=== PATIENT | male | born 1940 | race Caucasian/White ===

== ENCOUNTER 2017-01-25 17:51 | Inpatient (IN) ==
[2017-01-25] MEDS ORDERED: NS 1,000 ML IV ONE (18:46)
[2017-01-25] MEDS ORDERED: ZOFRAN IV ONE (18:46)
--- NOTE | 2017-01-25 18:51 | PROVIDER DOCUMENTATION ---
HPI-Abdominal Pain/GI Problem - General Chief Complaint: Nausea/Vomiting Stated Complaint: N/V/D Time Seen by Provider: 01/25/17 18:46 Source: patient, family Allergies/Adverse Reactions: Patient Allergies Allergy/AdvReac Type Severity Reaction Status Date / Time No Known Allergies Allergy Verified 01/25/17 18:09 Home Medications: Home Medication List Medication Instructions Recorded Confirmed Last Taken Type ATORVAstatin [Lipitor] 20 mg PO QHS 03/07/13 01/25/17 01/25/17 08:00 History Colesevelam [Welchol] 625 mg PO BID 03/07/13 01/25/17 01/25/17 08:00 History Escitalopram [Lexapro] 10 mg PO DAILY 03/07/13 01/25/17 01/25/17 08:00 History Finasteride 5 mg PO DAILY 03/07/13 01/25/17 01/25/17 08:00 History Metformin HCl [Metformin HCl ER] 500 mg PO BID 03/07/13 01/25/17 01/25/17 08:00 History Tamsulosin [Flomax] 0.4 mg PO QHS 03/07/13 01/25/17 01/25/17 08:00 History Glimepiride 2 mg PO BID 04/10/14 01/25/17 01/25/17 08:00 History Aspirin [Aspirin EC] 81 mg PO DAILY 08/14/15 01/25/17 01/25/17 08:00 History Cetirizine HCl [Zyrtec] 1 cap PO DAILY 08/14/15 01/25/17 01/25/17 08:00 History Methocarbamol [Robaxin] 500 mg PO 4XDAY PRN PRN 08/14/15 01/25/17 01/25/17 08: 00 History Oxycodone HCl/Acetaminophen 1 tab PO Q6H PRN PRN 08/14/15 01/25/17 Unknown History [Percocet 10-325 mg Tablet] Duloxetine [Cymbalta] 30 mg PO DAILY 01/25/17 01/25/17 01/25/17 08:00 History Esomeprazole [Nexium] 40 mg PO DAILY 01/25/17 01/25/17 01/25/17 08:00 History LISINOpril [Prinivil] 10 mg PO DAILY 01/25/17 01/25/17 01/25/17 08:00 History Metoclopramide [Reglan] 10 mg PO DAILY 01/25/17 01/25/17 01/25/17 08:00 History - History of Present Illness-ABD Nature of Presenting Problems: 76 yom c/o generalized Abdominal pain that has continued to get worse over the past month. Pt recently had a test and diagnosed with delayed gastric emptying and put on reglan and increased dose of reglan when that did not improve and today pain has continued to get worse and now unable to keep any PO fluids or food down. Abdominal Pain Onset Location: reports: epigastric, generalized abdomen Pain Radiation: reports: no radiation Quality of Pain: reports: aching, fullness, pressure Severity in ED: reports: moderate Onset/Duration: reports: other (weeks) Timing: reports: still present, getting worse Activities at Onset: reports: none Exposure to sick contacts?: No Modifying Factors: improves with: nothing Associated Symptoms: reports: nausea, vomiting Last BM: 24 hours ago Dark Stools Present?: reports: none noticed Rectal Bleeding: reports: none # of Diarrhea Episodes: 0 Rectal Pain: reports: none # of Vomiting Episodes: 5 Bruising or Bleeding Gums?: No Similar Symptoms Previously?: No Review of Systems - Adult - REVIEW OF SYSTEMS - ADULT Constitutional: reports: see HPI Eyes: reports: no symptoms reported Ears, Nose, Mouth & Throat: reports: no symptoms reported Cardiovascular: reports: no symptoms reported Respiratory: reports: no symptoms reported Gastrointestinal: reports: see HPI, abdominal pain, nausea, vomiting Genitourinary: reports: no symptoms reported Musculoskeletal: reports: no symptoms reported Integumentary: reports: no symptoms reported Neurological: reports: no symptoms reported Psychiatric: reports: no symptoms reported Endocrine: reports: no symptoms reported Hematologic/Lymphatic: reports: no symptoms reported Allergic/Immunologic: reports: no symptoms reported All Other Systems: Reviewed and Negative Past History - Adult - PAST MEDICAL HISTORY-ADULT Review of Records: reports: Old Records Reviewed, Nursing Assessment Review, Medications Reviewed, Social history reviewed & non-contributory. Major Childhood Illnesses: reports: denies history Cardiovascular: reports: HTN, hyperlipidemia, murmur, other (tachycardia) Gastrointestinal: reports: GERD, IBS, ulcer (Bleeding) Endocrine/Immune: reports: Diabetes Other Conditions: reports: other (diverticulitis) - PRIOR SURGERIES/PROCEDURES Surgical/Procedure History: reports: cholecystectomy, orthopedic (extremity), back/neck (low back), other (rudolph carpal tunnel) - PRIOR HOSPITALIZATIONS Prior Hospitalizations: reports: for other non-related - IMMUNIZATION STATUS Childhood Immunizations: UTD Flu Vaccine: UTD - FAMILY HISTORY Family History: reviewed, not pertinent Physical Exam-General - PHYSICAL EXAM-ADULT Initial Vital Signs Reviewed: Yes - CONSTITUTIONAL General Appearance: alert, mild distress - EYES Eyes: PERRL/EOMI, pink conjunctivae - HEAD, EARS, NOSE, MOUTH & THROAT HENMT: normocephalic/atraumatic, moist mucous membranes, normal ENT inspection - NECK Neck: non-tender, full range of motion, supple, normal inspection - RESPIRATORY Respiratory: chest non-tender, lungs clear, normal breath sounds, no pleuratic chest pain, no respiratory distress, no accessory muscle use - CARDIOVASCULAR Cardiovascular: normal peripheral pulses, regular rate, rhythm, no edema, no gallop, no JVD, no murmur - GASTROINTESTINAL (ABDOMEN) Abdominal Exam: no organomegaly, no pulsatile mass, abnormal bowel sounds ( hyperactive), distended (very mild distention), tenderness (generalized). negative: hernia, mass, hepatomegaly, spleenomegaly, McBurney's point tenderness , Smith's sign, obturator sign, prominent aortic pulsations, psoas, Rovsing's sign - LYMPHATIC Lymphatic: no adenopathy - MUSCULOSKELETAL Back Exam: normal inspection, no CVA tenderness, no vertebral tenderness Extremity: normal range of motion, non-tender, normal gait, normal inspection, no pedal edema, no calf tenderness, normal capillary refill, pelvis stable Peripheral Pulses: radial (R): 2+, radial (L): 2+, dorsalis-pedis (R): 2+, dorsalis-pedis (L): 2+ - SKIN Integumentary: normal color, normal turgor, warm/dry - NEUROLOGIC Neurologic: grossly normal, no motor/sensory deficits - PSYCHIATRIC Psych/Mental Status: normal mood/affect, normal thought content, normal thought process, oriented x 3 Progress - PLAN OF CARE/RESULTS Progress/Plan/Lab Results: Vital Signs - 8 hr 01/25/17 17:56 Temperature 98.0 F Pulse Rate 106 H Respiratory Rate 18 Blood Pressure 117/67 O2 Sat by Pulse Oximetry 100 Orders Category Date Time Status Saline Loc DIRECTED Care 01/25/17 18:44 Active NPO Diet 01/25/17 18:[address] ABD/PELVIS W/ IV CONT ONLY [CT] Stat Exams 01/25/17 18:44 Ordered AMYLASE [CHEM] Stat Lab 01/25/17 18:44 Uncollected CBC WITH ELECTRONIC DIFF [HEME] Stat Lab 01/25/17 18:44 Uncollected COMPREHENSIVE METABOLIC PANEL [CHEM] Stat Lab 01/25/17 18:44 Uncollected LIPASE [CHEM] Stat Lab 01/25/17 18:44 Uncollected URINALYSIS W/POSS RFLX CULT-1 [URINALYSIS] Stat Lab 01/25/17 18:44 Uncollected Ns 1000 ml IV Bolus X1 Med 01/25/17 18:46 Ordered 0.9% Sodium Chloride Inj [Ns] 1,000 ml IV 999 mls/hr Ondansetron [Zofran] Med 01/25/17 18:46 Once 4 mg IV NOW ONE Result Diagrams: 01/25/17 18:35 01/25/17 18:35 - CT/MRI 1 CT Study: Abdomen Impression: See EMR Report (Pnemonia otherwise normal.) - CONSULTS/PCP/HOSPITALIST Notification #1 *Consult/PCP/Hospitalist*: Dr. Aguilar Time Discussed: 20:45 Consult Disposition: Will see in ED, Admit Departure - Departure Date of Disposition Decision: 01/25/17 Time of Disposition Decision: 20:56 DIAGNOSIS: Pneumonia Qualifiers: Pneumonia type: due to unspecified organism Laterality: unspecified laterality Lung location: unspecified part of lung Qualified Code(s): J18.9 - Pneumonia, unspecified organism Intractable nausea and vomiting Qualifiers: Vomiting type: unspecified Qualified Code(s): R11.2 - Nausea with vomiting, unspecified Disposition: ADMITTED INPATIENT 09 Certified Medical Emergency: Emergent Condition: Stable Referrals and Follow-Ups: Dalton Friedman MD [Primary Care Provider] - - Critical Care Note This patient required my direct & personal management of CC.: No Attestation - Physician/ SAMEER Attestation Patient care was provided by Advanced Practice Provider:: Yes Advanced Practice Provider:: Jose Antonio Toscano Advanced Practice Provider documentation review:: The Mid-level provider documentation, treatment plan and medical decision making was reviewed by the physician who agrees with all treatment and medical decision making by the MLP. The physician spent face to face time with patient:: Yes Advanced Practice Provider documentation review:: Supervising physician onsite and consulted in the evaluation and care of this patient. The physician did have a face to face encounter with the patient.
[2017-01-25 18:56] LABS: MANUAL DIFF NEEDED? NO
[2017-01-25 18:58] LABS: BASO% 0.2 % (0.0-0.8); EOS% 2.1 % (0.0-10.0); HEMATOCRIT 39.6 % (42.0-52.0); HEMOGLOBIN 13.4 g/dL (14.0-18.0); LYMPH# 0.87 X1000 (1.2-3.4); LYMPH% 17.9 % (20.5-51.1); MCH 27.3 PG (27-31); MCHC 33.8 g/dL (33-37); MCV 80.8 FL (81-99); MONO# 0.31 X1000 (0.11-0.59); MONO% 6.4 % (1.7-9.3); MPV 10.2 FL (7.4-10.4); NEUT% 73.4 % (42.2-75.2); PLT 239 X1000 (130-400)
--- NOTE | 2017-01-25 19:20 | ED EKG INTERP ---
This chart was entered by Santi Kim Scribe, acting as scribe for Jose Antonio Mccracken MD. EKG Interpretation - EKG Time of EKG reading by physician:: 18:47 EKG Read and Signed by:: Jose Antonio Mccracken EKG Interpretation (*Must complete 3 of following elements*): Abnormal (RBBB) Rate: 87 Rhythm: NSR Attestation - Physician/ SAMEER Attestation Patient care was provided by Advanced Practice Provider:: Yes Advanced Practice Provider documentation review:: The Mid-level provider documentation, treatment plan and medical decision making was reviewed by the physician who agrees with all treatment and medical decision making by the MLP. The physician spent face to face time with patient:: No Advanced Practice Provider documentation review:: Supervising physician onsite and consulted in the evaluation and care of this patient. The physician did not have a face to face encounter with the patient. This chart was documented by the indicated scribe, (Santi Kim Scribe) and accurately reflects the services I performed and decisions made by me, Jose Antonio Mccracken MD, as attested by the provider's signature.
[2017-01-25 19:21] LABS: AGAP 14; ALBUMIN 4.3 g/dL (3.5-5.0); ALKALINE PHOSPHATASE 56 U/L (32-122); AMYLASE 34 U/L (20-200); BUN 16 mg/dL (8-22); CALCIUM 8.9 mg/dL (8.8-10.2); CHLORIDE 103 mmol/L (98-107); COSMO 284; GOT 13 U/L (10-34); GPT 16 U/L (10-44); LIPASE 42 U/L (13-60); POTASSIUM 3.9 mmol/L (3.5-5.1); SODIUM 141 mmol/L (136-145); TCO2 24 mmol/L (25-35); TOTAL BILIRUBIN 0.26 mg/dL (0.20-1.00); TOTAL PROTEIN 6.8 g/dL (6.3-8.3)
[2017-01-25 19:55] LABS: URINE CULTURE NEEDED? NO; URINE MICRO REVIEW NEEDED? NO; URINE SOURCE CLEAN CATCH
[2017-01-25 20:01] LABS: BILIRUBIN URINE NEGATIVE (NEGATIVE); BLOOD URINE NEGATIVE (NEGATIVE); COLOR YELLOW; GLUCOSE URINE NEGATIVE (NEGATIVE); LEUKOCYTES URINE NEGATIVE (NEGATIVE); NITRITE URINE NEGATIVE (NEGATIVE); PH URINE 5.5; PROTEIN URINE 30 mg/dL (NEGATIVE); SP GRAVITY URINE 1.024; TURBIDITY URINE CLEAR (CLEAR); UROBILINOGEN URINE NORMAL (NORMAL)
[2017-01-25 20:02] LABS: UR EPITHELIAL CELLS <10 /HPF (<10); URINE BACTERIA NEGATIVE /HPF; URINE RBC <10 /HPF (<10); URINE WBC <10 /HPF (<10)
--- NOTE | 2017-01-25 20:10 | Diag Imaging Result Doc PS360 ---
EXAM: CT ABD/PELVIS W/ IV CONT ONLY HISTORY: abd pain TECHNIQUE: CT of the abdomen and pelvis with intravenous contrast and dose reduction (clarity.) COMMENT: There are minimal fibrotic changes present in the lung bases which have apparently been present since at least 06/28/2013. There is groundglass opacity in the posterior costophrenic sulcus of the right lower lobe which was not present at the time the previous study. There are multiple pulmonary nodules which appear to have been present previously most notably in the right lower lobe on image 31 near the diaphragm. The abdominal aorta is slightly distended inferiorly measuring a maximum of 2.8 cm in AP dimension. There are multiple cysts in the right kidney. There has been cholecystectomy. The mesenteric and renal arteries are patent. There is an accessory right renal artery. The appendix is normal in appearance. The liver, spleen, adrenal glands, and pancreas are unremarkable in appearance. There is no evidence of significant adenopathy or bowel obstruction. Pelvis: There is diverticulosis in the sigmoid colon. No abnormal fluid collections are present. The regional skeleton is stable in appearance. IMPRESSION: Minimal right lower lobe pneumonia. No evidence of acute disease in the abdomen or pelvis. Electronically signed by Mani Thomson 01/25/2017 8:07 PM
[2017-01-25] MEDS ORDERED: ROCEPHIN 1 GM/NS 1 GM/50 ML IVPB IV ONE (20:35)
[2017-01-25] MEDS ORDERED: ROBAXIN PO PRN (23:56)
[2017-01-26] MEDS ORDERED: TYLENOL PO PRN
[2017-01-26] MEDS ORDERED: NS 1,000 ML ONE (00:29)
[2017-01-26] MEDS: ZOSYN 3.375 GM/NS 3.375 GM/50 ML IVPB IV SCH ×4 (01:30→21:18)
[2017-01-26] MEDS: NS 1,000 ML IV SCH ×2 (01:30→11:07)
[2017-01-26] MEDS ORDERED: MELATONIN PO ONE (03:06)
--- NOTE | 2017-01-26 04:14 | HISTORY AND PHYSICAL ---
PRIMARY CARE PROVIDER: Dr. Kerry Friedman. DATE AND TIME: 01/25/2017 at 2230. CHIEF COMPLAINT: Nausea and vomiting. HISTORY OF PRESENT ILLNESS: Mr. Corea is a 76-year-old, male [facility] of nausea and vomiting as well as early satiety. He states that for approximately the past 3-4 weeks that he has had a feeling of feeling full all the time. He states that when he does eat, he maybe eats 1 or 2 bites and feels very full. He did have a gastric emptying study done on 01/05/2017 which did show delayed gastric emptying. He states that since this time, for the past 3 or 4 days, his symptoms have been worse. He states this time that he is having a hard time holding meals down. He states that he can hold fluids down easier than than food. He has been vomiting. He denies any abdominal pain, though upon examination did have some generalized tenderness across his entire abdomen as well as epigastric area. Given his reported symptoms, they did perform a CT of the abdomen and pelvis with IV contrast in the ER which did show some diverticulosis in the sigmoid colon, though there was no evidence of acute disease in the abdomen or pelvis. Also noted on the CT was a minimal right lower lobe pneumonia. Upon examination, the patient does have crackles in the right lower lobe, though he denies any cough, shortness of breath, fever, body aches, or chills. He has had recent frequent episodes of nausea and vomiting, though he denies becoming choked during any of this episodes. He also reports a few episodes of some dizziness upon standing, though he states this only happens when he goes from a sitting to a standing position and is very brief. He denies any headache, chest pain, diarrhea, or constipation. He reports that his last bowel movement was yesterday. He denies any hematochezia or melena. He denies any urinary symptoms or pain, numbness, tingling, or swelling in the extremities. At this time, he will be admitted for further treatment and evaluation of his right lower lobe pneumonia as well as intractable nausea and vomiting. REVIEW OF SYSTEMS: A 12 point review of systems was conducted with the patient. All were negative except for pertinent positives mentioned above in the HPI. PAST MEDICAL HISTORY: 1. Cervical spinal stenosis. 2. Diabetes mellitus type 2. 3. Gastroesophageal reflux disease. 4. Hypertension. 5. Hyperlipidemia. 6. Previous history of gastrointestinal bleeding. 7. Bursitis. 8. Irritable bowel syndrome. 9. History of mitral valve repair. PAST SURGICAL HISTORY: 1. Cholecystectomy. 2. ORIF of the left knee. 3. Right and left carpal tunnel release. 4. C1 through C5 fusion. 5. A minimally invasive lumbar microdiskectomy at L4 and L5. 6. Mitral valve replacement. SOCIAL HISTORY: The patient denies any history of tobacco use. He states that he did used to have a glass of wine occasionally, though has not had one in 5 years. FAMILY HISTORY: Reports that his mother was killed in an MVA. He reports that his father had a history of hypertension and coronary artery disease as well as a myocardial infarction and at age 67. ALLERGIES: Patient reports no known allergies. HOME MEDICATIONS: 1. Aspirin 81 mg p.o. daily. 2. Lipitor 20 mg p.o. at bedtime. 3. Zyrtec 10 mg 1 capsule p.o. daily. 4. Welchol 625 mg p.o. b.i.d. 5. Cymbalta 30 mg p.o. daily. 6. Lexapro 10 mg p.o. daily. 7. Nexium 40 mg p.o. daily. 8. Finasteride 5 mg p.o. daily. 9. Glimepiride 2 mg p.o. b.i.d. 10. Lisinopril 10 mg p.o. daily. 11. Metformin HCL extended release 500 mg tablet p.o. b.i.d. 12. Robaxin 500 mg p.o. 4 times a day p.r.n. as needed for spasms. 13. Reglan 10 mg p.o. daily. 14. Percocet 10 mg p.o. q.6 hours p.r.n. for pain. 15. Flomax 0.4 mg p.o. at bedtime. DIAGNOSTIC DATA/LABORATORY RESULTS: 1. White blood cell count 4.87, hemoglobin 13.4, hematocrit 39.6, platelet count 239,000. Sodium 141, potassium 3.9, chloride 103, bicarb 24, BUN 16, creatinine 0.9, glucose 122, calcium 8.9. Liver function tests within normal limits. Amylase 34, lipase 42. Urinalysis was obtained via clean catch, was positive for some protein but was otherwise within normal limits. 2. We performed a chest x-ray, 2 view, which showed no acute abnormality, though we are awaiting official radiology over-read. 3. There was a CT of the abdomen and pelvis that was performed which showed no evidence of acute disease in the abdomen or pelvis. There was some diverticulosis noted in the sigmoid colon as well as a cyst in the right kidney, though the CT of the abdomen and pelvis did pickle sorter a minimal right lower lobe pneumonia. Also noted were some pulmonary nodules which were present on a previous CT. 4. EKG showed normal sinus rhythm with a right bundle branch block at a rate of 87, QTc is 490. PHYSICAL EXAMINATION: VITAL SIGNS: Temperature 98.4, heart rate 85, respirations 16, blood pressure 138/78. Oxygen saturation is 99% room air. GENERAL: Mr. Corea is a very pleasant, 76-year-old, male who is resting on the ER stretcher. He is in no acute distress. He was awake, alert, and able to answer all questions appropriately. HEENT: Head is atraumatic, normocephalic. Pupils are equal, round, reactive to light, were 3 mm bilaterally and brisk. Oral mucosa is moist. Oropharynx is clear. NECK: Supple. Trachea midline. CARDIOVASCULAR: Patient has normal S1, S2. No murmurs, gallops, rubs appreciated with a regular rate and rhythm. PULMONARY: Patient has symmetrical chest expansion bilaterally. Lung sounds were clear to auscultation except for there were some fine crackles noted in the right lung base. ABDOMEN: Soft. Nondistended, though the patient did report some generalized tenderness upon palpation. Bowel sounds were present in all 4 quadrants, were slightly hypoactive. EXTREMITIES: No cyanosis, clubbing, or edema noted. Pulse, motor, and sensory are intact in all extremities. Pedal pulses are 3+ bilaterally. Capillary refill was less than 3. INTEGUMENTARY: The patient's skin is pink, warm, dry, and intact. No lesions or sores noted. NEUROLOGICAL: Patient is alert and oriented to person, place, time, and situation. Cranial nerves 2-12 are grossly intact. ASSESSMENT AND PLAN: 1. Right lower lobe pneumonia. Given that the patient has had reported recent frequent episodes of nausea and vomiting,, this could likely be secondary to aspiration. We will go ahead and cover him for this by placing him on antibiotic coverage with Zosyn 3.375 g intravenous every 6 hours. Also, blood cultures have been collected. Sputum culture has been ordered as well. We will continue to follow. 2. Intractable nausea and vomiting. As previously mentioned, the patient did recently have a gastric emptying study performed on 01/05/2017 which showed delayed gastric emptying. The patient states that over the past few days his symptoms have gotten worse. He also has reported some weight loss as well. We have placed the patient nothing per oral except for ice chips and medications. We have placed a consult with gastroenterology and we will await their evaluation and further recommendations. We will provide hydration with normal saline at 100 mL per hour. 3. Gastroesophageal reflux disease. We will continue the patient's Nexium. 4. Diabetes mellitus type 2. We will place the patient on a lispro sliding scale per low-dose protocol. We will continue to monitor. 5. Hypertension. We will continue his lisinopril. 6. Hyperlipidemia. We will continue his Lipitor. The patient was placed on the medical floor with telemetry. He will have vital signs every 6 hours. We will do strict intake and output. Deep venous thrombosis prophylaxis will be provided with sequential compression devices. We will do incentive spirometry. We will repeat a CBC and CMP in the morning. Further orders and recommendations pending hospital course , diagnostic studies, and physician evaluation. Dictated by DARION Lewis for Donald Goodwin MD cc: MD Kerry Fonseca MD MTDD
--- NOTE | 2017-01-26 05:37 | EKG Report ---
Test Performed on : 01/25/2017 6:46:44 PM Test Reason : epigastric pain Blood Pressure : / mmHG Vent. Rate : 087 BPM Atrial Rate : 087 BPM P-R Int : 134 ms QRS Dur : 144 ms QT Int : 408 ms P-R-T Axes : 032 066 032 degrees QTc Int : 490 ms Normal sinus rhythm. Right bundle branch block Abnormal ECG When compared with ECG of 09-APR-2014 15:44, T wave inversion now evident in Anterior leads Unconfirmed Result
[2017-01-26] MEDS: HUMALOG SUBQ SCH ×4 (06:16→21:20)
[2017-01-26] MEDS: PRILOSEC PO SCH (06:27)
[2017-01-26 07:15] LABS: MANUAL DIFF NEEDED? NO
[2017-01-26 07:22] LABS: BASO% 0.2 % (0.0-0.8); EOS# 0.11 X1000 (0.0-0.7); EOS% 2.2 % (0.0-10.0); HEMATOCRIT 36.7 % (42.0-52.0); HEMOGLOBIN 12.2 g/dL (14.0-18.0); LYMPH# 1.15 X1000 (1.2-3.4); LYMPH% 22.9 % (20.5-51.1); MCH 27.1 PG (27-31); MCHC 33.2 g/dL (33-37); MCV 81.6 FL (81-99); MPV 10.3 FL (7.4-10.4); NEUT% 66.7 % (42.2-75.2); PLT 216 X1000 (130-400)
--- NOTE | 2017-01-26 07:24 | Diag Imaging Result Doc PS360 ---
EXAM: CHEST-2 VIEWS HISTORY: LLL PNA per CT ABD/Pelvis TECHNIQUE: Two views COMPARISON: 07/16/2015 FINDINGS: The lungs are well expanded. The heart is not enlarged. Sternal wires are present. The vessels are not distended. There are no infiltrates. No pleural effusions. There are bridging ossifications throughout the thoracic spine. IMPRESSION: No pneumonia identified on the plain films. Electronically signed by Sebastian Costello 01/26/2017 7:22 AM
[2017-01-26 07:41] LABS: AGAP 10; ALBUMIN 4.1 g/dL (3.5-5.0); ALKALINE PHOSPHATASE 51 U/L (32-122); BUN 14 mg/dL (8-22); CALCIUM 8.6 mg/dL (8.8-10.2); CHLORIDE 104 mmol/L (98-107); COSMO 282; GOT 12 U/L (10-34); GPT 13 U/L (10-44); POTASSIUM 3.8 mmol/L (3.5-5.1); SODIUM 142 mmol/L (136-145); TCO2 28 mmol/L (25-35); TOTAL BILIRUBIN 0.26 mg/dL (0.20-1.00)
--- NOTE | 2017-01-26 08:30 | Diag Imaging Result Doc PS360 ---
EXAM: CHEST-2 VIEWS HISTORY: cough TECHNIQUE: Two views COMPARISON: 01/25/2017 FINDINGS: The lungs are well expanded. The heart is not enlarged. Sternal wires are present. The vessels are not distended. There are no infiltrates. No pleural effusions. There are bridging ossifications throughout the thoracic spine. IMPRESSION: No pneumonia. Electronically signed by Sebastian Costello 01/26/2017 8:27 AM
[2017-01-26] MEDS ORDERED: PRINIVIL PO SCH (09:00)
[2017-01-26] MEDS ORDERED: WELCHOL PO SCH (09:00)
[2017-01-26] MEDS: ASPIRIN EC PO SCH (09:09)
[2017-01-26] MEDS: LEXAPRO PO SCH (09:09)
[2017-01-26] MEDS: PROSCAR PO SCH (09:09)
[2017-01-26] MEDS: ZYRTEC PO SCH (09:09)
[2017-01-26] MEDS: CYMBALTA PO SCH (09:09)
--- NOTE | 2017-01-26 10:27 | PROGRESS NOTE ---
DATE: 01/26/2017 SUBJECTIVE: Mr. Yaw Corea has a longstanding history of diabetic gastroparesis. He presented to the ER complaining of persistent nausea, vomiting, early satiety, and diminished appetite. A CT scan of the abdomen and pelvis showed diverticulosis in the sigmoid colon. They saw a minimal right lower lobe pneumonia. He denies any fever, chills, nausea, vomiting, or cough. His blood pressure is fluctuating. OBJECTIVE: Vital Signs: Systolic blood pressures have ranged from 150 to 161, whereas his diastolic blood pressures have ranged from 77 to 94, temperature 98.2 degrees, pulse 77, respirations 18, BP 161/94. CV: Regular rate and rhythm. Lungs: Faint crackles in the right base. Abdomen: Soft, nontender, with active bowel sounds. No hepatosplenomegaly. No abdominal bruits. ASSESSMENT AND PLAN: 1. Intractable nausea and vomiting secondary to diabetic gastroparesis. I will increase the Reglan to 10 mg prior to each meal. We will use Zofran on an as needed basis for nausea and vomiting. 2. Suspected aspiration pneumonitis. We will continue Zosyn. 3. Hypertension. Blood pressure is too high. I will increase the lisinopril to 10 mg bid. cc: MD PHILL Miller
[2017-01-26] MEDS: PERCOCET-10 PO PRN (11:08)
[2017-01-26] MEDS: REGLAN PO SCH ×2 (11:09→17:12)
--- NOTE | 2017-01-26 18:54 | CONSULTATION ---
DATE OF CONSULTATION: 01/26/2017 REFERRING PHYSICIAN: Dr. Greg Friedman. REASON FOR REFERRAL: Nausea and vomiting, gastroparesis. HISTORY OF PRESENT ILLNESS: This is a 76-year-old white male who came into the hospital with nausea and vomiting. He had been seen by Dr. Friedman. An evaluation was done on 01/05/2017 where he had a gastric emptying study that showed delayed gastric emptying. He was started on Reglan. Patient reports that symptoms had not improved. After having other episodes of vomiting last night he decided to come into the emergency room for further evaluation. Patient's is with him today. She reports that he has lost about 30 pounds. He reports being tired and fatigued. He does take metformin for diabetes along with subcutanous insulin. She states at times his blood sugar runs high. Other times it runs in the low 100s. She reports that he has constipation at home. He may go several days without a bowel movement. He takes a stool softener daily. He also takes Welchol twice a day for history of diarrhea. He has not had any diarrhea reported lately. He was last seen in our office by Dr. Day in 2009. He had a colonoscopy in 2006 that showed hemorrhoids. PAST MEDICAL HISTORY: Cervical spinal stenosis. Diabetes type 2. GERD, hypertension, hyperlipidemia, irritable bowel syndrome. History of mitral valve repair, bursitis. PAST SURGICAL HISTORY: Cholecystectomy, left knee surgery, lower back surgery, cervical surgery, right and left carpal tunnel release. Mitral valve repair. ALLERGIES: No known drug allergies. HOME MEDICATIONS: Cymbalta 30 mg daily. Reglan 10 mg daily. Prinivil 10 mg daily, Flomax 0.4 mg every night. Percocet 10/325 mg every 6 hours as needed. Robaxin 500 mg as needed. Metformin 500 mg twice daily, glimepiride 2 mg twice daily. Finasteride 5 mg daily. Nexium 40 mg daily. Lexapro 10 mg daily. Welchol 625 mg twice daily. Zyrtec 1 capsule daily, aspirin 81 mg daily, Lipitor 20 mg every night. SOCIAL HISTORY: Denies tobacco or alcohol use. He is . He has 2 children. 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 REVIEW OF SYSTEMS: Per HPI. PHYSICAL EXAMINATION: Vital Signs: Temperature 98.2 degrees, pulse 87, respirations 17, blood pressure 156/71. General: Patient is awake, alert, no acute distress. HEENT : Normocephalic, atraumatic. Pupils equal, round, reactive to light. Sclerae nonicteric. Cardiovascular: Regular rate and rhythm. Respiratory: Lung sounds essentially clear bilaterally. Some few crackles noted. Extremities: No lower extremity edema noted. Neurological: Cranial nerves 2-12 grossly intact. Patient is awake, alert, oriented to person, place, and time. LABORATORY RESULTS: Hematology: White count 5.02, hemoglobin 12.2, hematocrit 36.7, MCV 81.6. Platelets 216,000. Chemistry: Sodium 142, potassium 3.8, chloride 104, CO2 28 , BUN 14, creatinine 0.9, glucose 78, calcium 8.6, total bilirubin 0.26, AST 12, ALT 13, alkaline phosphatase 51, amylase 34, lipase 42. CT scan of the abdomen and pelvis showed diverticulosis. Minimal right lower lobe pneumonia. ASSESSMENT AND PLAN: 1. Nausea and vomiting. 2. Early satiety. 3. Weight loss. 4. Constipation. 5. Right lower lobe pneumonia. 6. Diabetes. 7. Gastroparesis PLAN: Continue supportive care and symptomatic treatment. Recommend holding Welchol for now. Continue Reglan. We will add Belle-Colace 2 tablets every night. We will plan to proceed with an EGD when able. Further plans will be made according to findings in his symptoms. Poor gastric emptying can also be related to some of his medications including Robaxin, oxycodone and exacerbating symptoms of constipation. We will stop Welchol for now and continue Reglan and add Belle-Colace. Further plans to be made as needed. I have discussed this case with Dr. Mathis. Thank you for this consultation. Dictated by DARION Pate for Esteban Mathis MD cc: DARION Tejeda MD M. Neel Roberts, MD [facility]
[2017-01-26] MEDS ORDERED: FLOMAX PO SCH (21:00)
[2017-01-26] MEDS ORDERED: PERICOLACE PO SCH (21:00)
[2017-01-26] MEDS ORDERED: LIPITOR PO SCH (21:00)
[2017-01-26] MEDS: PRINIVIL PO SCH (21:19)
[2017-01-27] MEDS: ZOSYN 3.375 GM/NS 3.375 GM/50 ML IVPB IV SCH (01:02)
[2017-01-27] MEDS: PERCOCET-10 PO PRN ×2 (01:33→09:17)
[2017-01-27] MEDS: REGLAN PO SCH (06:08)
[2017-01-27] MEDS: PRILOSEC PO SCH (06:08)
[2017-01-27] MEDS: HUMALOG SUBQ SCH (07:40)
[2017-01-27] MEDS ORDERED: CLEOCIN PO SCH (08:00)
[2017-01-27 08:21] VITALS: BP 123/83
--- NOTE | 2017-01-27 08:48 | DISCHARGE SUMMARY ---
ADMISSION DATE: 01/25/2017 DISCHARGE DATE: 01/27/2017 DISCHARGE DIAGNOSES: 1. Intractable nausea and vomiting secondary to diabetic gastroparesis. 2. Aspiration pneumonitis. 3. Essential hypertension. 4. Type 2 noninsulin-dependent diabetes mellitus complicated by polyneuropathy. 5. Irritable bowel syndrome with diarrhea. 6. Mixed hyperlipidemia. 7. Gastroesophageal reflux disease. 8. Chronic low back pain secondary to lumbar spinal stenosis. 9. Cervical spinal stenosis. DISCHARGE INSTRUCTIONS: 1. Return to clinic in 1 week to see me, Dr. Greg Friedman, in anticipation of a transition of care visit. 2. Activity as tolerated. 3. Anti-gastroparesis diet. MEDICATIONS: Aspirin 81 mg daily, Atorvastatin 20 mg at bedtime, Zyrtec 10 mg daily, Cleocin 300 mg every 6 hours for 7 days, Cymbalta 30 mg daily, Lexapro 10 mg daily, Proscar 5 mg daily, lisinopril 10 mg b.i.d., Robaxin 500 mg every 6 hours p.r.n., Reglan 10 mg p.o. t.i.d. before meals, Nexium 40 mg daily, Percocet 10 one every 6 hours p.r.n. pain, Colace 1 p.o. b.i.d., Flomax 0.4 mg daily. DISCHARGE PHYSICAL EXAMINATION: General: This is a well-developed, well-nourished, 76-year-old, gentleman in no apparent distress. Vital Signs: He is afebrile. Vital signs are stable. Cardiovascular: Regular rate and rhythm. Lungs: Clear. Abdomen: Soft, nontender, with active bowel sounds. HISTORY AND HOSPITAL COURSE: Mr. Corea was admitted to [facility] with intractable nausea, vomiting, and early satiety. Previous gastric emptying studies were consistent with diabetic gastroparesis. He had been taking Reglan 10 mg twice daily. We increased the Reglan to 10 mg prior to each meal 3 times daily. We treated his nausea and vomiting on a p.r.n. basis with Zofran. We bolused him with fluids. His nausea and vomiting resolved. We advanced his diet, and he was tolerating a bland diet without nausea, vomiting, or abdominal pain. We did consult dietary to discuss dietary modifications to reduce the risk of gastroparesis. If he does not respond long-term with Reglan and dietary modifications, he would potentially be a candidate for gastric pacemaker. He does have a longstanding history of hypertension. His blood pressure was fluctuating during the hospitalization. We increased the lisinopril to 10 mg b.i.d. with stabilization of his blood pressure. He denied any chest pain, palpitations, or anginal equivalents. He has a history of type 2 noninsulin-dependent diabetes mellitus, complicated by polyneuropathy. We continued him on pattern sugars, Humulin R sliding scale, and his regular home medicines. Blood sugars remained stable. Having reached maximum hospital benefit, the patient was discharged in stable condition. cc: Kerry Friedman MD
[2017-01-27] MEDS: ASPIRIN EC PO SCH (09:17)
[2017-01-27] MEDS: PRINIVIL PO SCH (09:17)
[2017-01-27] MEDS: LEXAPRO PO SCH (09:18)
[2017-01-27] MEDS: ZYRTEC PO SCH (09:18)
[2017-01-27] MEDS: CYMBALTA PO SCH (09:18)
[2017-01-27] MEDS: PROSCAR PO SCH (09:18)
== END 2017-01-27 10:08 | disposition home or self-care (01) ==
LOC: ED 17:51 → 3N 22:00 → SUATTDRO 22:00 → 3N 01-27 00:53
PROVIDERS: ADMIT Internal Medicine; ATTEND Internal Medicine

== ENCOUNTER 2019-03-10 12:48 | Observation (INO) ==
[2019-03-10] MEDS ORDERED: PHENERGAN IV PRN (13:05)
[2019-03-10] MEDS ORDERED: SODIUM CHLORIDE 0.9% INJ PRN (13:05)
[2019-03-10] MEDS ORDERED: DESYREL PO PRN (13:05)
[2019-03-10] MEDS ORDERED: TYLENOL PO PRN (13:05)
[2019-03-10] MEDS ORDERED: LOVENOX SUBQ SCH (13:05)
[2019-03-10 13:59] LABS: BASO# 0.02 X1000 (0.0-0.2); BASO% 0.3 % (0.0-0.8); EOS# 0.22 X1000 (0.0-0.7); EOS% 2.8 % (0.0-10.0); HEMOGLOBIN 13.1 g/dL (14.0-18.0); LYMPH# 1.26 X1000 (1.2-3.4); LYMPH% 16.2 % (20.5-51.1); MCH 27.1 PG (27-31); MCHC 32.8 g/dL (33-37); MCV 82.8 FL (81-99); MONO# 0.56 X1000 (0.11-0.59); MONO% 7.2 % (1.7-9.3); MPV 9.8 FL (7.4-10.4); NEUT# 5.72 X1000 (1.4-6.5); NEUT% 73.5 % (42.2-75.2); PLT 222 X1000 (130-400); RBC 4.83 XMIL (4.7-6.1); RDW 15.1 % (11.5-14.5); WBC 7.78 X1000 (4.8-10.8)
--- NOTE | 2019-03-10 13:59 | Diag Imaging Result Doc PS360 ---
EXAM: MRI LUMBAR SPINE W/O CONTRAST HISTORY: lumbar spinal stenosis falls, worsening pain right TECHNIQUE: MRI lumbar spine without contrast. Axial and sagittal images obtained in multiple sequences. COMPARISON: 10/13/2016 FINDINGS: There is edema within the superior endplate of the L4 vertebra. Minimal loss of height to the L4 vertebra. No other compression fracture. Prominent degenerative bone spurring throughout the lumbar spine. The conus is at T12-L1. L1-2: Mild bulging disc. Mild facet hypertrophy. There is mild spinal stenosis with mild narrowing of the right neural foramen. L2-3: Narrowed disc space. Prominent bulging disc with bilateral facet hypertrophy resulting in at least moderate spinal stenosis with moderate bilateral neural foraminal narrowing. L3-4: Prominent bulging disc with bilateral facet hypertrophy resulting in moderate spinal stenosis and at least moderate narrowing of each neural foramen, right greater than left. L4-5: Left lateral disc herniation. Prominent facet hypertrophy. There is mild spinal stenosis. Marked narrowing of the left neural foramen with moderate to marked narrowing of the right neural foramen. L5-S1: Normal disc. Prominent facet hypertrophy. Moderate narrowing of the right neural foramen. Moderate spinal stenosis. IMPRESSION: 1.Mild superior endplate compression fracture to the L4 vertebra 2.Multilevel bulging discs and facet hypertrophy resulting in multilevel spinal stenosis and neural foraminal narrowing. 3. New left lateral disc herniation at L4-5 with neural foraminal narrowing and spinal stenosis. Electronically signed by Sebastian Costello 03/10/2019 1:57 PM
[2019-03-10 14:18] LABS: AGAP 13; BUN 14 mg/dL (8-22); CALCIUM 8.9 mg/dL (8.8-10.2); CHLORIDE 99 mmol/L (98-107); COSMO 280; CREATININE 0.9 mg/dL (0.7-1.2); ESTIMATED GFR > 60; GLUCOSE 107 mg/dL (70-104); POTASSIUM 4.1 mmol/L (3.5-5.1); SODIUM 140 mmol/L (136-145); TCO2 28 mmol/L (25-35)
[2019-03-10] MEDS: ROBAXIN PO SCH ×2 (14:28→21:27)
[2019-03-10] MEDS: SOLU-MEDROL IV SCH ×2 (14:28→21:27)
[2019-03-10] MEDS: HUMULIN R SUBQ SCH ×2 (19:43→21:27)
[2019-03-10] MEDS: DILAUDID IV PRN (20:00)
[2019-03-10] MEDS ORDERED: PATIENT'S OWN MED PO SCH (21:00)
[2019-03-10] MEDS ORDERED: PERICOLACE PO SCH (21:00)
[2019-03-10] MEDS ORDERED: FLOMAX PO SCH (21:00)
[2019-03-10] MEDS: PRINIVIL PO SCH (21:27)
[2019-03-10] MEDS: GLUCOPHAGE XR PO SCH (21:27)
[2019-03-10] MEDS: AMARYL PO SCH (21:27)
[2019-03-11] MEDS: DILAUDID IV PRN ×3 (00:54→08:13)
[2019-03-11] MEDS: SOLU-MEDROL IV SCH ×2 (04:23→12:13)
[2019-03-11] MEDS: HUMULIN R SUBQ SCH ×2 (06:50→11:15)
[2019-03-11] MEDS ORDERED: NEXIUM PO SCH (07:00)
--- NOTE | 2019-03-11 07:27 | Diag Imaging Result Doc PS360 ---
EXAM: CHEST-2 VIEWS HISTORY: cad, htn TECHNIQUE: Chest two views COMPARISON: 10/04/2018 FINDINGS: The lungs are well expanded. The heart is not enlarged. There are sternal wires. The vessels are not distended. There are no infiltrates. No pleural effusions. IMPRESSION: No acute abnormality. Electronically signed by Sebastian Costello 03/11/2019 7:25 AM
[2019-03-11] MEDS ORDERED: CYMBALTA PO SCH (09:00)
[2019-03-11] MEDS ORDERED: ASPIRIN EC PO SCH (09:00)
[2019-03-11] MEDS ORDERED: PATIENT'S OWN MED PO SCH (09:00)
[2019-03-11] MEDS ORDERED: LEXAPRO PO SCH (09:00)
[2019-03-11] MEDS ORDERED: PROSCAR PO SCH (09:00)
--- NOTE | 2019-03-11 09:56 | HISTORY AND PHYSICAL ---
CHIEF COMPLAINT: Low back pain. HISTORY OF PRESENT ILLNESS: Mr. Yaw Corea is an 78-year-old gentleman with a history of multiple medical problems including gastroesophageal reflux disease, type 2 non insulin dependent diabetes mellitus complicated by polyneuropathy, chronic low back pain secondary to lumbar spinal stenosis with neurogenic claudication, mixed hyperlipidemia, BPH, and depression, who is well known to me. As stated earlier, he has a longstanding history of chronic low back pain secondary to lumbar spinal stenosis with neurogenic claudication. He is followed at the pain clinic. Over the past 2 weeks he has had worsening low back pain. He reports that the pain has been incapacitating. He is having difficulty walking. He has always had numbness and tingling in both legs but reports that he is having worsening pain and paresthesias in the left leg. His symptoms are worse with prolonged sitting and standing. He feels unsteady on his feet. He has fallen on several occasions. PAST MEDICAL HISTORY: As above. PAST SURGICAL HISTORY: Cholecystectomy, left total knee, right carpal tunnel release, cervical spinal fusion. ALLERGIES: No known drug allergies. FAMILY HISTORY: His father at the age of 67. He had known hypertension and ischemic heart disease. His mother was killed in an MVA at age 30. SOCIAL HISTORY: He has never smoked. He does consume alcoholic beverages. He is and lives with his spouse. MEDICATIONS: 1. Victoza 1.8 mg subcutaneously daily. 2. Gabapentin 600 mg t.i.d. 3. Atorvastatin 20 mg at bedtime. 4. Metformin 500 mg b.i.d. 5. Paxil 10 mg daily. 6. Flomax 0.4 mg daily. 7. Percocet 10/325 one q.6 hours p.r.n. pain. 8. Cymbalta 60 mg daily. 9. Glimepiride 4 mg b.i.d. 10. Multivitamin 1 p.o. daily. 11. Nexium 20 mg daily. 12. Zyrtec 10 mg daily. 13. Aspirin 81 mg daily. REVIEW OF SYSTEMS: He denies any recent weight gain or weight loss.HEENT: He wears glasses. He is hard of hearing. CV: No chest pain, palpitations, or anginal equivalents. Pulmonary: No shortness of breath, PND, orthopnea. GI: No reflux, dysphagia, melena, hematochezia, change in bowel habits, or rectal bleeding. Endocrine: No polyuria, no polydipsia. No cold or heat intolerance. Skin: No easy bruisability. : No leakage of urine with coughing or laughing. Neurologic: No migraines or seizures. Psychiatric: He has a history of depression. PHYSICAL EXAMINATION: This is a chronically ill-appearing 78-year-old gentleman in no apparent distress. VITAL SIGNS: Blood pressure 130/70, pulse 107, respiratory rate 15, weight 211 pounds HEENT: Fundi with arteriolar wall thickening. Pupils equal, round, reactive to light. Extraocular eye movements intact. TMs without bullae. NECK: Supple. No masses, JVD or bruits. CV: Regular rate and rhythm with a 3/6 systolic ejection murmur at the left sternal margin. LUNGS: Clear. ABDOMEN: Soft, nontender, with active bowel sounds. EXTREMITIES: Without edema. SKIN: No palpable purpura. GENITOURINARY AND RECTAL: Deferred. NEUROLOGIC: He has decreased light touch in the distal extremities bilaterally. He has paraspinal muscle tenderness. There is tenderness over the LS spine. He has a straight leg raise test on the left, he has slightly diminished leg strength in the left leg. He was unable to walk on his heels or toes. Gait is ataxic. ASSESSMENT AND PLAN: 1. Acute exacerbation of underlying chronic low back pain secondary to lumbar spinal stenosis with neurogenic claudication. I am going to admit him to [facility] overnight for pain management. I will began Dilaudid 1 mg IV q.3 hours, IV Solu-Medrol and Robaxin 750 mg p.o. q.8 hours. I will check an MRI of the lumbosacral spine. I will consult occupational therapy and physical therapy for evaluation. 2. Type 2 [id number] diabetes mellitus. We will place him on an 1800 calorie ADA diet, pattern sugars, Humulin R sliding scale and his regular home dosage of medications. 3. BPH. We will continue Flomax 0.4 mg daily. Given his worsening pain and difficulty walking, I believe that it is reasonable to admit him overnight for pain management. I anticipate that he will be in the hospital for only 1 midnight and I will therefore place him in outpatient status. I will begin Lovenox 40 mg subcutaneously daily for DVT prophylaxis. cc: Kerry Friedman MD
--- NOTE | 2019-03-11 09:57 | PROGRESS NOTE ---
DATE: 03/11/2019 SUBJECTIVE: Mr. Corea was admitted to [facility] on 03/10/2019 with worsening low back pain. We started him on intravenous Solu-Medrol, intravenous Dilaudid and Robaxin. MRI of the lumbar spine demonstrated mild spinal stenosis at L1 and L2. There was moderate spinal stenosis and moderate bilateral neural foraminal narrowing at L2-L3. There was moderate spinal stenosis at L3-L4. He had a lateral disk herniation with marked narrowing of the left neural foramen, with moderate to marked narrowing of the right neural foramen at L4-L5. He reports that the back pain has improved significantly overnight. Blood sugars are fluctuating. Sugars are ranging from 107 to 237. He is on IV steroids. He has polyuria and polydipsia. OBJECTIVE: Vital Signs: Temperature 97.7 degrees, pulse 104, respirations 18, BP 150/80. CV: Regular rate and rhythm with a 3/6 systolic ejection murmur at the left sternal margin. Lungs: Clear. Abdomen: Soft, nontender, with active bowel sounds. Neurologic: He has paraspinal muscle spasm and tenderness over the LS spine. He has a straight leg raise test on the left. ASSESSMENT AND PLAN: Chronic low back pain secondary to lumbar spinal stenosis with acute worsening of the low back pain secondary to a herniated disk at L4-L5. Clinically he is better. We will consult occupational therapy and physical therapy for evaluation. I hope to transition him back to his regular regimen of pain medicines and muscle relaxers that have been given to him at the pain clinic. We will arrange for home health and home physical therapy. I will make a referral for him to see Dr. Kris Solano for surgical evaluation. cc: Kerry Friedman MD
[2019-03-11] MEDS: ROBAXIN PO SCH ×2 (10:09→12:13)
[2019-03-11] MEDS: AMARYL PO SCH (10:10)
[2019-03-11] MEDS: PRINIVIL PO SCH (10:12)
[2019-03-11] MEDS: GLUCOPHAGE XR PO SCH (10:12)
[2019-03-11 11:58] VITALS: BP 112/54
== END 2019-03-11 12:44 | disposition home or self-care (01) ==
LOC: DIRADM → 4N 12:48
PROVIDERS: ADMIT Internal Medicine; ATTEND Internal Medicine